=== PATIENT | male | born 1975 | race Caucasian/White ===

== ENCOUNTER → 2016-06-07 | Outpatient (CLI) | payer MEDICARE | LOC: EMS 02:06 | DX: Z53.20 Procedure and treatment not carried out because of patient's decision for unspecified reasons (principal) ==

== ENCOUNTER 2016-06-09 15:38 | Inpatient (IN) | payer MEDICARE ==
[~2016-06-09] VITALS: Ht 172.7 cm; Wt 82.0 kg
[2016-06-09 17:24] LABS: BASOPHILS % (AUTO) 0 % (0-2); EOSINOPHILS # (AUTO) 0.1 10^3uL; EOSINOPHILS % (AUTO) 1 % (0-4); LYMPHOCYTES # (AUTO) 3.1 X10^3; MEAN CORPUSCULAR HEMOGLOBIN 31.3 PG (26.0-34.0); MEAN CORPUSCULAR VOLUME 85 FL (80-100); MEAN PLATELET VOLUME 9.9 FL (6.0-9.5); MONOCYTES # (AUTO) 0.7 X10^3; MONOCYTES % (AUTO) 6 % (3-11); NEUTROPHILS # (AUTO) 7.8 X10^3; NEUTROPHILS % (AUTO) 66 % (51-67); PLATELET COUNT 371 10^3uL (150-450); WHITE BLOOD COUNT 11.76 10^3uL (4.0-11.0)
[2016-06-09 17:25] LABS: MEAN CORPUSCULAR HGB CONC 36.9 g/dL (31.0-37.0)
[2016-06-09 17:33] LABS: ALBUMIN 5.1 g/dL (3.4-5.0); ALKALINE PHOSPHATASE 113 U/L (38-126); ANION GAP 24.5 MEQ/L (3-15); BUN/CREATININE RATIO 13 (10-20); TOTAL PROTEIN 8.8 g/dL (6.4-8.5)
[2016-06-09] MEDS ORDERED: MAGNESIUM SULFATE 1GM VIAL 2 GM, THIAMINE INJ 100 MG, MULTIVITAMIN INJ 10 ML in D5LR 1,... IV SCH (18:55)
[2016-06-09] MEDS ORDERED: THIAMINE 100 MG/ML (VITAMIN B1) 2 ML VIAL IV ONE (18:55)
[2016-06-09] MEDS ORDERED: THIAMINE 100 MG/ML (VITAMIN B1) 2 ML VIAL ONE (18:59)
[2016-06-09 19:00] LABS: BILIRUBIN,URINE Negative (Negative); CLARITY,URINE Clear; COLOR,URINE Yellow; GLUCOSE, URINE (UA) Negative (Negative); LEUKOCYTE ESTERASE ,URINE Negative (Negative); PH,URINE 5.5 (5.0 - 8.0); UROBILINOGEN,URINE 0.2 mg/dL (0.2-1.0)
[2016-06-09] MEDS ORDERED: MULTIVITAMINS (MVI) 2 5 ML VIALS IV ONE (19:00)
[2016-06-09] MEDS ORDERED: MAGNESIUM SULFATE 1 GM/2 ML VIAL ONE (19:00)
[2016-06-09 19:04] LABS: RBC,URINE 0-2 /HPF; URINE CENTRIFUGED VOLUME 12 mL
[2016-06-09 19:06] LABS: AMPHETAMINE SCREEN, URINE Positive (Negative); CANNABINOID SCREEN, URINE Negative (Negative); METHAMPHETAMINE SCREEN URINE S NEGATIVE (NEGATIVE); OPIATE SCREEN URINE Negative (Negative); PROPOXYPHENE STAT NEGATIVE (NEGATIVE)
--- NOTE | 2016-06-09 19:43 | NUR ---
PT PULLED OUT IV AND IS WANTING TO GO HOME, LET DR KNOW THIS AND DR MCKENZIE INTO ROOM TO TALK TO HIM
[2016-06-09 19:50] VITALS: BP 129/73
[2016-06-09] MEDS ORDERED: ACETAMINOPHEN 325 MG TAB (TYLENOL) PO PRN (19:50)
[2016-06-09] MEDS ORDERED: ONDANSETRON 2 MG/ML (Z0FRAN) 2 ML VIAL IV PRN (19:50)
[2016-06-09] MEDS ORDERED: LORazepam 2 MG/ML (ATIVAN) 1 ML VIAL IV PRN (19:50)
[2016-06-09] MEDS ORDERED: HALOPERIDOL 5 MG/ML (HALDOL) 1 ML AMP IM PRN (19:50)
[2016-06-10] MEDS ORDERED: PANTOPRAZOLE 40 MG (PROTONIX) TAB PO SCH (07:00)
== END 2016-06-09 19:27 | disposition left against medical advice (07) | DRG 894 ==
LOC: ED 15:40 → ICU 19:27
PROVIDERS: ADMIT Emergency Medicine; ATTEND Emergency Medicine
DX: F10.120 Alcohol abuse with intoxication, uncomplicated (principal); R45.851 Suicidal ideations; F20.9 Schizophrenia, unspecified; B19.20 Unspecified viral hepatitis C without hepatic coma; Y90.8 Blood alcohol level of 240 mg/100 ml or more
CPT/HCPCS: 36415; 51701; 80053; 80307; 80320; 80329; 81003; 81015; 85025; 96361; 96365; 99283

== ENCOUNTER → 2016-06-09 | Outpatient (CLI) | payer MEDICARE | LOC: EMS 15:48 | PROVIDERS: ATTEND Emergency Medicine | DX: R41.82 Altered mental status, unspecified (principal); F20.9 Schizophrenia, unspecified ==

== ENCOUNTER 2016-06-19 14:24 | Observation (INO) | payer MEDICARE ==
[~2016-06-19] VITALS: Ht 172.7 cm; Wt 85.0 kg
[2016-06-19] MEDS ORDERED: SODIUM CHLORIDE FLUSH 3 ML SYR IV ONE (14:35)
[2016-06-19] MEDS ORDERED: SODIUM CHLORIDE FLUSH 10 ML SYR IV PRN (14:35)
[2016-06-19] MEDS ORDERED: LORazepam 2 MG/ML (ATIVAN) 1 ML VIAL IV ONE (14:35)
[2016-06-19] MEDS ORDERED: NICOTINE 21 MG (NICODERM) PATCH TD ONE (14:50)
--- NOTE | 2016-06-19 14:50 | NUR ---
Patient states that the voices in his head have been getting worse since he stopped his Haldol three weeks ago. Today they were telling him to shoot himself, that Maryann (ulises) didn't love him and that Maryann wasn't who she said she is. Denies voices at this current time. Maryann in room - states patient didn't consume alcohol but did drink a small bottle of vanilla. Relayed to ED doc.
[2016-06-19 14:55] LABS: BASOPHILS % (AUTO) 1 % (0-2); EOSINOPHILS # (AUTO) 0.1 10^3uL; EOSINOPHILS % (AUTO) 1 % (0-4); LYMPHOCYTES # (AUTO) 2.4 X10^3; MEAN CORPUSCULAR VOLUME 84 FL (80-100); MEAN PLATELET VOLUME 8.9 FL (6.0-9.5); MONOCYTES # (AUTO) 1.2 X10^3; MONOCYTES % (AUTO) 12 % (3-11); NEUTROPHILS # (AUTO) 6.3 X10^3; NEUTROPHILS % (AUTO) 63 % (51-67); PLATELET COUNT 271 10^3uL (150-450); WHITE BLOOD COUNT 10.07 10^3uL (4.0-11.0)
[2016-06-19 14:59] LABS: MEAN CORPUSCULAR HGB CONC 36.8 g/dL (31.0-37.0)
[2016-06-19 15:07] LABS: ALBUMIN 4.4 g/dL (3.4-5.0); ALKALINE PHOSPHATASE 104 U/L (38-126); ANION GAP 16.7 MEQ/L (3-15); BUN/CREATININE RATIO 15 (10-20); CALCULATED IONIZED CALCIUM 3.7 mg/dL (3.8-4.6)
[2016-06-19] MEDS: MAGNESIUM SULFATE 1GM VIAL 2 GM, THIAMINE INJ 100 MG, MULTIVITAMIN INJ 10 ML in D5LR 1,... IV SCH ×2 (15:08→19:56)
[2016-06-19 15:41] LABS: BILIRUBIN,URINE Negative (Negative); CLARITY,URINE Clear; GLUCOSE, URINE (UA) Trace (Negative); LEUKOCYTE ESTERASE ,URINE Negative (Negative)
[2016-06-19 15:44] LABS: COLOR,URINE Dark Yellow
[2016-06-19 15:59] LABS: URINE CENTRIFUGED VOLUME 12 mL
[2016-06-19 16:00] LABS: AMPHETAMINE SCREEN, URINE Negative (Negative); CANNABINOID SCREEN, URINE Negative (Negative); METHAMPHETAMINE SCREEN URINE S NEGATIVE (NEGATIVE); OPIATE SCREEN URINE Negative (Negative); PROPOXYPHENE STAT NEGATIVE (NEGATIVE)
[2016-06-19] MEDS ORDERED: BENZTROPINE MESYLATE 1 MG (COGENTIN) TAB PO ONE (16:00)
[2016-06-19] MEDS ORDERED: HALOPERIDOL 5 MG (HALDOL) TABLET PO ONE (16:00)
[2016-06-19] MEDS ORDERED: LORazepam 1 MG (ATIVAN) TABLET PO ONE (16:00)
[2016-06-19 16:07] LABS: RBC,URINE 0-2 /HPF
--- NOTE | 2016-06-19 16:08 | NUR ---
Dr. Ambrose is coming to see pt after getting report from .
--- NOTE | 2016-06-19 16:31 | NUR ---
liter of NS being held at this time until Dr. Ambrose sees patient per Dr. Solitario saravia
[2016-06-19] MEDS ORDERED: LORazepam 2 MG/ML (ATIVAN) 1 ML VIAL IV PRN (17:10)
[2016-06-19] MEDS ORDERED: HALOPERIDOL 5 MG/ML (HALDOL) 1 ML AMP IM PRN (17:10)
[2016-06-19] MEDS ORDERED: MAGNESIUM SULFATE 1GM VIAL 2 GM, THIAMINE INJ 100 MG, MULTIVITAMIN INJ 10 ML in D5LR 1,... IV SCH (17:10)
[2016-06-19] MEDS ORDERED: CALCIUM CARBONATE CHEWABLE 300 MG (TUMS) TABLET PO PRN (17:10)
[2016-06-19] MEDS ORDERED: ONDANSETRON 4 MG (ZOFRAN) ORAL DISSOLVE TAB PO PRN (17:10)
[2016-06-19] MEDS: NICOTINE 14 MG (NICODERM) PATCH TD SCH (17:10)
[2016-06-19] MEDS ORDERED: THIAMINE 100 MG/ML (VITAMIN B1) 2 ML VIAL IM SCH (17:10)
--- NOTE | 2016-06-19 17:20 | NUR ---
41 yr old w/m admitted from ED via wc to 301. ETOH on breath. Cooperative, alert and oriented with speech slightly slurred. Transfers to weight chair with stand by assist. c/o left knee hurting 09/17- states bumped it. ~1" healing, scabbed laceration noted . See admission data base.
[2016-06-19 17:28] VITALS: BP 135/74
[2016-06-19] MEDS ORDERED: SODIUM CHLORIDE FLUSH 3 ML SYR ONE (18:09)
[2016-06-19 18:12] VITALS: BP 129/85
[2016-06-19] MEDS: MULTIVITAMIN INJ 10 ML, THIAMINE INJ 100 MG, MAGNESIUM SULFATE 1GM VIAL 2 GM in D5LR 1,... IV SCH (18:18)
[2016-06-19] MEDS ORDERED: NS FLUSH 3 ML PRN IV (18:20)
--- NOTE | 2016-06-19 18:25 | NUR ---
Sitting up in bed eating supper. Marcy. diet well.
[2016-06-19] MEDS: oxyCODONE/ACETAMINOPHEN 5MG-325 MG (PERCOCET) TABLET PO PRN ×2 (19:34→23:34)
[2016-06-19 19:44] VITALS: BP 128/71
[2016-06-19] MEDS: HALOPERIDOL 5 MG (HALDOL) TABLET PO SCH (20:56)
[2016-06-19 23:40] VITALS: BP 112/78
--- NOTE | 2016-06-20 05:50 | NUR ---
Pt rests in long intervals throughout the night. Friend in to visit a few times. PRN percocet provided x2 for c/o knee pain. IVF infusing w/o difficulty.
[2016-06-20 06:21] LABS: ANION GAP 11.6 MEQ/L (3-15)
[2016-06-20] MEDS: MULTIVITAMIN INJ 10 ML, THIAMINE INJ 100 MG, MAGNESIUM SULFATE 1GM VIAL 2 GM in D5LR 1,... IV SCH (07:12)
[2016-06-20 07:39] VITALS: BP 144/79
[2016-06-20] MEDS: oxyCODONE/ACETAMINOPHEN 5MG-325 MG (PERCOCET) TABLET PO PRN ×3 (08:04→18:37)
[2016-06-20] MEDS: HALOPERIDOL 5 MG (HALDOL) TABLET PO SCH ×2 (08:04→20:16)
[2016-06-20] MEDS: NICOTINE 14 MG (NICODERM) PATCH TD SCH (08:04)
--- NOTE | 2016-06-20 08:04 | NUR ---
Pt requests Percocet for knee pain and back pain rated 7/10. Given as ordered. Nicotine patch placed to Lt upper arm- secured with tegaderm. IV intact to RAC- Banana bag infusing at 75ml/hr as ordered- pt requests to have IVF stopped. Will await Dr. Del Castillo's rounding. Call light within reach, door ajar for frequent visual monitoring.
[2016-06-20] MEDS: NICOTINE PATCH REMOVAL TOP SCH (08:08)
[2016-06-20] MEDS: NS FLUSH 3 ML DAILY IV SCH (08:08)
--- NOTE | 2016-06-20 09:47 | NUR ---
IV SL per Dr. Del Castillo orders. Coban placed for securement of IV. Pt resting with eyes closed, TV on for sound
--- NOTE | 2016-06-20 10:12 | NUR ---
Med Rec completed via conversation with patient.
--- NOTE | 2016-06-20 12:52 | NUR ---
Pt asks for pain meds- Percocet 5mg PO given for left knee pain and neck pain. 10/17
--- NOTE | 2016-06-20 14:31 | NUR ---
MULTIDISCIPINARY MTG/DR. THOMAS: [facility] consult completed this morning. Pt. endorsing continued hallucinations and hearing voices. Recommended inpatient psychiatric care and Pt. is agreeable. SW has contacted [facility] in [place] and they do not have any beds available at this time but plan on having discharges today. SW will follow up later today.
[2016-06-20] MEDS ORDERED: SODIUM CHLORIDE FLUSH 10 ML SYR IV PRN (14:35)
[2016-06-20] MEDS ORDERED: SODIUM CHLORIDE 250 ML ONE (15:21)
[2016-06-20 15:36] VITALS: BP 132/72
--- NOTE | 2016-06-20 16:40 | NUR ---
[facility] in [place] is able to accept Pt. First, they need to check with Medicare to see if Pt. has any Medicare days available before they accept him. MAXIMO left the 3rd floor phone number with Madai in order for [facility] to contact if they are able to accept Pt. this evening.
[2016-06-20 23:44] VITALS: BP 128/82
--- NOTE | 2016-06-21 05:54 | NUR ---
Uneventful shift. Pt visits with significant other. Rests in long intervals throughout the night. Denies pain. SL intact. Resp even and non labored on RA.
[2016-06-21] MEDS: oxyCODONE/ACETAMINOPHEN 5MG-325 MG (PERCOCET) TABLET PO PRN ×2 (07:25→12:47)
--- NOTE | 2016-06-21 07:26 | NUR ---
PRN Percocet given at this time per pt request for c/o L knee pain rated 7/10. Pt appears anxious/restless. Denies other needs.
[2016-06-21 08:04] VITALS: BP 123/83
--- NOTE | 2016-06-21 08:22 | NUR ---
NUTRITION ASSESSMENT Level 1 Patient: Smith Cheung Age/Sex: 41/M Date Screened: 06-21-16 Weight: 187#/85 kg Height: 68 inches Primary Diagnosis: suicidal ideations, ETOH abuse Diet Order: regular Relevant labs: N/A Food allergies: N Nutrition Assessment Criteria Age over 80: N Body Mass Index (BMI) under 19: N Admission Screening Indicates Risk? 3 points Moderate/High Risk Diagnosis: 3 points TPN or PPN: N NPO or clear liquid diet: N Serum Glucose <70 or >180: N/A Hgb A1c >6.7: N/A Total: 6 points Risk Screen: __ Patient at low nutritional risk based on available data; reevaluate in 5-7 days __ Patient at moderate nutritional risk based on available data; reevaluate in 3-5 days _X_ Patient at high nutritional risk; complete Nutrition Assessment within 48 hours of admission.
[2016-06-21] MEDS: NICOTINE 14 MG (NICODERM) PATCH TD SCH ×2 (09:00→09:40)
[2016-06-21] MEDS: NICOTINE PATCH REMOVAL TOP SCH (09:09)
[2016-06-21] MEDS: HALOPERIDOL 5 MG (HALDOL) TABLET PO SCH (09:09)
[2016-06-21] MEDS: NS FLUSH 3 ML DAILY IV SCH (09:16)
--- NOTE | 2016-06-21 12:08 | NUR ---
Pt. has been accepted to [facility] in [place]. They were unable to verify the number of Medicare days Pt. has available therefore if Pt. has used more than the allotted number of days he would have an out of pocket expense. MAXIMO discussed this with Pt. and he states he hasn't used more days than what is allowed and agreed to go to [facility]. Pt. will discharge today to [facility] via EMS. Dr. Del Castillo and nurse Tucker were notified. Caitlin will give report to [facility] nurse once Pt. is discharged.
--- NOTE | 2016-06-21 12:49 | NUR ---
Report called to MONIK Lopez at [facility] at [phone]. Belongings gathered. SL removed with catheter tip intact. EMS notified of transfer, will arrive shortly.
--- NOTE | 2016-06-21 12:51 | NUR ---
PRN Percocet given at this time for c/o L knee pain rated 7/10. No facial grimacing noted.
--- NOTE | 2016-06-21 13:03 | NUR ---
EMS here to transport pt to [facility]. Skin warm, dry, intact. Resprs nonlabored, even on RA. No IV access. Pt states S/O is aware of transfer, but will be unable to come to [place] today. Belongings sent with patient, along with DC packet. Pt dismissed at this time via cart accompanied by EMS crew.
== END 2016-06-21 13:03 ==
LOC: ED 14:26 → MED/SURG 16:51
PROVIDERS: ADMIT Family Medicine; ATTEND Family Medicine
DX: F20.9 Schizophrenia, unspecified (principal); R45.851 Suicidal ideations; F10.220 Alcohol dependence with intoxication, uncomplicated; E03.9 Hypothyroidism, unspecified; G89.29 Other chronic pain; F32.9 Major depressive disorder, single episode, unspecified; B19.20 Unspecified viral hepatitis C without hepatic coma; F41.9 Anxiety disorder, unspecified; Y90.8 Blood alcohol level of 240 mg/100 ml or more; F17.210 Nicotine dependence, cigarettes, uncomplicated; Z91.5 Personal history of self-harm
CPT/HCPCS: 36415; 80048; 80053; 81003; 81015; 82140; 84443; 85025; 85610; 96365; 96366; 96375; 99284; A9270; G0478; G0480; J2060; J3411; J3475; 80307; 80320; 80329; 96372; 99218; 99283

== ENCOUNTER → 2016-06-21 | Outpatient (CLI) | payer MEDICARE | LOC: EMS 13:00 | PROVIDERS: ATTEND Family Medicine | DX: F20.9 Schizophrenia, unspecified (principal) ==

== ENCOUNTER 2016-08-23 00:33 | Emergency (ER) | payer MEDICARE ==
[~2016-08-23] VITALS: Ht 172.7 cm; Wt 81.8 kg
[~2016-08-23 00:33] MED LIST: AC325T PO; ALBU8CC IH; ALPR.5T PO; AMOX1TAB11 PO; AMOX500T2 PO; BENZ0.5T3 PO; BENZOTROPINE PO; BNZT1T PO; CEPH-331 PO; ESOM20SU PO; HALO1TAB PO; HALO1TAB4 PO; HLP5T PO; HYDR-3811 PO; HYDR-508 PO; IBP200T PO; IBP800T PO; LORA-405 PO; LORA1TAB PO; MELO-249 PO; NCT21TD TD; NF-TORA10 PO; NO HOME MEDS; ONDAN4ODT PO; OXYC1TAB87 PO; SAPHRIS; ZIPR60CA7 PO; ZPR20C PO
--- OUTSIDE RECORDS SUMMARY | 2016-08-23 00:37 | XMS REPORT | Continuity of Care Document ---
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 Drug abuse ~09/14/2013 Active History of alcohol abuse ~09/09/2013 Active History of drug abuse ~09/09/2013 Active Opioid abuse ~09/09/2013 Active Mental health problem Unknown Active Mental disorder Unknown Active Feeling suicidal Unknown Resolved Tooth pain ~02/15/2014 Active Pain, dental ~02/15/2014 Active Chest pain ~04/18/2014 Active Alcohol intoxication 06/19/2014 Active Schizophrenia 06/19/2014 Active Medications Medication Dose Route Sig Days/Qty Instructions Order Date Discontinued Date Status Haloperidol 1 Mg ORAL TWICE A DAY 05/30/13 Active [Benzotropine] 0.5 Mg ORAL TWICE A DAY 05/30/13 09/14/13 Discontinued Amoxicillin 1 Tab ORAL THREE TIMES A DAY 30 Qty 06/09/13 08/22/13 Discontinued Ondansetron Hcl 4 Mg ORAL EVERY 4HRS For Nausea/Vomiting 10 Qty 09/14/13 Discontinued Benztropine Mesylate 0.5 Mg ORAL TWICE A DAY 09/14/13 Active Ketorolac Tromethamine 10 Mg ORAL EVERY 6 HOURS PRN PAIN 12 Qty 02/19/14 Discontinued Cephalexin Monohydrate 500 Mg ORAL EVERY 6 HOURS 40 Qty 02/16/1404/22 Discontinued Hydrocodone/Acetaminophen 1 Each ORAL TWICE A DAY 02/19/14 Active Nicotine 21 Mg TRANSDERMAL DAILY 04/22/14 Active Ibuprofen 200 Mg ORAL NEEDED 04/22/14 Active Social History No social history. Hospital Discharge Instructions No hospital discharge instructions. Plan of Care Discharge Date 06/19/14 6:20am Instructions/Education Provided Abuse of Alcohol (ED) Prescriptions See Medications Section Functional Status No functional status results. Allergies, Adverse Reactions, Alerts Allergen Type Severity Reaction Status Last Updated No Known Allergies Allergy Unknown Active 09/15/13 Immunizations No immunization records. Vital Signs Acute Vital Signs Vital Response Date/Time Temperature (Fahrenheit) 99.1 Pulse 100 bpm Respirations 22 Results Test Source Date Result Interp. Ref. Range Comments Acetaminophen Level June 19, 2014 2:30am < 10.0 mcg/mL L 10.0-30.0 Activated Partial Thromboplast Time April 21, 2014 9:42pm 26.3 SEC N 25.0-39.0 Alanine Aminotransferase (ALT/SGPT) June 19, 2014 2:30am 58 U/L N 30- 65 Albumin June 19, 2014 2:30am 4.9 g/dL N 3.4-5.0 Albumin/Globulin Ratio June 19, 2014 2:30am 1.531 N 1.1-1.8 Alkaline Phosphatase June 19, 2014 2:30am 94 U/L N 38-126 Amylase Level April 21, 2014 9:42pm 118 U/L H 25-115 Anion Gap June 19, 2014 2:30am 21.3 MEQ/L H 3-15 Aspartate Amino Transf (AST/SGOT) June 19, 2014 2:30am 44 U/L H 15-37 BUN/Creatinine Ratio June 19, 2014 2:30am 18 N 10-20 Basophils # (Auto) June 19, 2014 2:30am 0.1 10^3uL Basophils (%) (Auto) June 19, 2014 2:30am 1 % N 0-2 Blood Urea Nitrogen June 19, 2014 2:30am 15 mg/dL N 7-18 Calcium Level June 19, 2014 2:30am 10.2 mg/dL N 8.8-10.8 Calcium/Ionized Calcium Ratio June 19, 2014 2:30am 4.2 mg/dL N 3.8-4.6 Calculated Osmolality June 19, 2014 2:30am 286 mosm/L N 280-300 Carbon Dioxide Level June 19, 2014 2:30am 29 mmol/L N 22-29 Chloride Level June 19, 2014 2:30am 102 mmol/L N 98-108 Creatine Kinase MB April 21, 2014 9:42pm 3.5 NG/ML N 0.0-6.0 Creatinine June 19, 2014 2:30am 0.83 mg/dL N 0.8-1.5 Eosinophils # (Auto) June 19, 2014 2:30am 0.2 10^3uL Eosinophils (%) (Auto) June 19, 2014 2:30am 2 % N 0-4 Estimat Glomerular Filtration Rate June 19, 2014 2:30am 123.5 Estimated GFR (Non- June 19, 2014 2:30am 102.1 Glucose Level June 19, 2014 2:30am 102 mg/dL N 70-110 Hematocrit June 19, 2014 2:30am 48.30 % N 39.00-50.00 Hemoglobin June 19, 2014 2:30am 17.3 g/dL H 13.5-17.0 Lipase April 21, 2014 9:42pm 142 U/L N 23-300 Lymphocytes # (Auto) June 19, 2014 2:30am 4.7 X10^3 Lymphocytes (%) (Auto) June 19, 2014 2:30am 42 % N 20-46 Mean Corpuscular Hemoglobin June 19, 2014 2:30am 30.6 PG N 26.0-34.0 Mean Corpuscular Hemoglobin Concent June 19, 2014 2:30am 35.8 g/dL N 31.0-37.0 Mean Corpuscular Volume June 19, 2014 2:30am 85 FL N 80-100 Mean Platelet Volume June 19, 2014 2:30am 9.1 FL N 6.0-9.5 Monocytes # (Auto) June 19, 2014 2:30am 0.9 X10^3 Monocytes (%) (Auto) June 19, 2014 2:30am 8 % N 3-11 Neutrophils # (Auto) June 19, 2014 2:30am 5.2 X10^3 Neutrophils (%) (Auto) June 19, 2014 2:30am 47 % L 51-67 Platelet Count June 19, 2014 2:30am 360 10^3uL DN 150-450 Potassium Level June 19, 2014 2:30am 4.3 mmol/L N 3.5-5.1 Prothromb Time International Ratio April 21, 2014 9:42pm 0.8 N 0.8- 1.4 Prothrombin Time April 21, 2014 9:42pm 11.5 SEC L 12.3-14.4 Red Blood Count June 19, 2014 2:30am 5.66 10^6uL H 4.50-5.50 Red Cell Distribution Width June 19, 2014 2:30am 12.6 % N 11.8-15.6 Salicylates Level June 19, 2014 2:30am < 1.0 MG/DL L 2.0-20.0 Serum Alcohol June 19, 2014 2:30am 354.0 mg/dL PH 10-[address] Robles read back the results. Called by Imani Mcdermott at [id number] Sodium Level June 19, 2014 2:30am 148 mmol/L DN 135-150 Streptococcus Screen May 31, 2013 7:33am Negative Negative Collected by nurse? N Thyroid Stimulating Hormone (TSH) September 14, 2013 8:56pm 0.53 UIU/ML N 0.46-4.68 Collected by nurse? N Total Bilirubin June 19, 2014 2:30am 0.6 mg/dL N 0.1-1.0 Total Creatine Kinase April 21, 2014 9:42pm 219 U/L H 55-170 Total Protein June 19, 2014 2:30am 8.1 g/dL N 6.4-8.5 Troponin I April 21, 2014 9:42pm < 0.012 ng/mL 0.010-0.080 Ur Tricyclic Antidepressants Screen September 14, 2013 9:38pm Negative Negative Collected by nurse? NUrine collection method Clean Catch Urine Amorphous Sediment September 10, 2013 6:30am 1+ /HPF H Collected by nurse? NUrine collection method Clean Catch Urine Amphetamines Screen September 14, 2013 9:38pm Positive H Negative Collected by nurse? NUrine collection method Clean Catch Urine Bacteria September 14, 2013 9:38pm None seen /HPF Collected by nurse? NUrine collection method Clean Catch Urine Barbiturates Screen September 14, 2013 9:38pm Negative Negative Collected by nurse? NUrine collection method Clean Catch Urine Benzodiazepines Screen September 14, 2013 9:38pm Negative Negative Collected by nurse? NUrine collection method Clean Catch Urine Bilirubin September 14, 2013 9:38pm Negative Negative Collected by nurse? NUrine collection method Clean Catch Urine Blood September 14, 2013 9:38pm Trace-intact H Negative Collected by nurse? NUrine collection method Clean Catch Urine Cannabinoids Screen September 14, 2013 9:38pm Negative Negative Collected by nurse? NUrine collection method Clean Catch Urine Clarity September 14, 2013 9:38pm Clear Collected by nurse? NUrine collection method Clean Catch Urine Cocaine Screen September 14, 2013 9:38pm Negative Negative Collected by nurse? NUrine collection method Clean Catch Urine Collection Type September 14, 2013 9:38pm Catheter Collected by nurse? NUrine collection method Clean Catch Urine Color September 14, 2013 9:38pm Yellow Collected by nurse? NUrine collection method Clean Catch Urine Glucose (UA) September 14, 2013 9:38pm Negative Negative Collected by nurse? NUrine collection method Clean Catch Urine Ketones September 14, 2013 9:38pm Negative Negative Collected by nurse? NUrine collection method Clean Catch Urine Leukocyte Esterase September 14, 2013 9:38pm Negative Negative Collected by nurse? NUrine collection method Clean Catch Urine Methadone Screen September 14, 2013 9:38pm Negative Negative Collected by nurse? NUrine collection method Clean Catch Urine Methamphetamines Screen September 14, 2013 9:38pm Positive H NEGATIVE Collected by nurse? NUrine collection method Clean Catch Urine Mucus September 14, 2013 9:38pm 2+ H Collected by nurse? NUrine collection method Clean Catch Urine Nitrite September 14, 2013 9:38pm Negative Negative Collected by nurse? NUrine collection method Clean Catch Urine Opiates Screen September 14, 2013 9:38pm Positive H Negative Collected by nurse? NUrine collection method Clean Catch Urine Oxycodone Screen September 14, 2013 9:38pm Negative NEGATIVE Collected by nurse? NUrine collection method Clean Catch Urine Phencyclidine Screen September 14, 2013 9:38pm Negative Negative Phencyclidine testing by this method can showcross-reactivity with several common medications such as venlafaxine, dextromethorphan, and diphenhydramine. Submission of any positive sample for confirmatory testing is recommended. Urine Propoxyphene Screen September 14, 2013 9:38pm Negative NEGATIVE Results of this screen are qualitative and are presumptiveresults. A more specific method (i.e. GC/MS) must be used if confirmation of results is indicated. Urine Protein September 14, 2013 9:38pm Negative Negative Collected by nurse? NUrine collection method Clean Catch Urine RBC September 14, 2013 9:38pm 0-2 /HPF Collected by nurse? NUrine collection method Clean Catch Urine Specific [place] September 14, 2013 9:38pm 1.015 1.005-1.030 Collected by nurse? NUrine collection method Clean Catch Urine Squamous Epithelial Cells September 14, 2013 9:38pm 0-2 /LPF Collected by nurse? NUrine collection method Clean Catch Urine Urobilinogen September 14, 2013 9:38pm 0.2 mg/dL 0.2-1.0 Collected by nurse? NUrine collection method Clean Catch Urine WBC September 14, 2013 9:38pm None seen /HPF Collected by nurse? NUrine collection method Clean Catch Urine pH September 14, 2013 9:38pm 7.0 5.0 - 8.0 Collected by nurse? NUrine collection method Clean Catch Volume Urine Centrifuged September 14, 2013 9:38pm 10 ml Collected by nurse? NUrine collection method Clean Catch White Blood Count June 19, 2014 2:30am 11.09 10^3uL H 4.0-11.0 Group A Streptococcus Culture Throat May 31, 2013 7:33am Procedures No known history of procedures. Encounters Encounter Location Date/Time Registered Clinic [facility] 06/19/14 2:45am Departed Emergency Room [facility] 06/19/14 2:42am
--- OUTSIDE RECORDS SUMMARY | 2016-08-23 00:40 | XMS REPORT | Continuity of Care Document ---
Author Author [facility] Organization [facility] Address Unknown Phone Unavailable Care Team Providers Care Director Of Valuation Name Role Phone NISHA, ZAIN Smiley MD PCP [phone] Insurance Providers Payer Name Policy Number Subscriber Name Relationship Medicare A And B [id number] Smith Cheung 16 Self / Same As [...] NUrine collection method Clean Catch Urine Specific [place] September 14, 2013 9:38pm 1.015 1.005-1.030 Collected [...] procedures. Encounters Encounter Location Date/Time Registered Clinic [facility] 06/19/14 2:45am Departed Emergency Room [facility] 06/19/14 2:42am
[2016-08-23 00:45] VITALS: BP 140/85
[2016-08-23] MEDS ORDERED: HALOPERIDOL 5 MG/ML (HALDOL) 1 ML AMP IM ONE (00:55)
[2016-08-23] MEDS ORDERED: LORazepam 2 MG/ML (ATIVAN) 1 ML VIAL IM ONE (00:55)
--- NOTE | 2016-08-23 01:14 | NUR ---
Pt states he now is not suicidal and wants to leave. Dr. Tenorio notified and visiting with pt.
== END 2016-08-23 01:16 | disposition home or self-care (01) ==
LOC: ED 00:35
DX: F41.1 Generalized anxiety disorder (principal); F20.9 Schizophrenia, unspecified
CPT/HCPCS: 96372; 99283; J1630; J2060; 99282